=== PATIENT | male | born 1940 | race Hispanic/Latino ===

== ENCOUNTER 2020-12-31 16:33 | Inpatient (IN) | payer MEDICARE ==
[~2020-12-31] VITALS: Ht 167.6 cm; Wt 77.1 kg
[~2020-12-31 16:33] MED LIST: ASPIR 8181 MG PO; ATORVASTATIN CA40 MG PO; MIRTAZAPINE15 MG PO; ZEBETA10 MG PO
[2020-12-31] MEDS ORDERED: LACTULOSE SYRUP 20 GM/30 ML UDC PO ONE (17:30)
[2020-12-31 17:57] LABS: BASOPHILS # (AUTO) 0.1 (0.0-0.1); BASOPHILS % 0.4 % (0.0-1.0); EOSINOPHILS % 0.2 % (0.0-6.0); HEMATOCRIT 40.6 % (38.2-49.6); LYMPHOCYTES # (AUTO) 1.2 (1.0-3.2); LYMPHOCYTES % 8.9 % (18.0-39.1); MEAN CORPUSCULAR HEMOGLOBIN 34.1 pg (28-32); MEAN CORPUSCULAR HGB CONC 34.5 g/dL (31-35); MEAN CORPUSCULAR VOLUME 98.8 fL (81-99); MONOCYTES # (AUTO) 1.9 (0.2-0.8); MONOCYTES % 14.3 % (4.4-11.3); NEUTROPHILS # (AUTO) 9.7 (2.1-6.9); NEUTROPHILS % 74.4 % (38.7-80.0); PLATELET COUNT 298 x10e3/uL (140-360); RED BLOOD COUNT 4.11 x10e6/uL (4.3-5.7)
[2020-12-31 18:14] LABS: ALBUMIN 3.1 g/dL (3.5-5.0); ALBUMIN/GLOBULIN RATIO 0.9 (0.8-2.0); ANION GAP 18.8 mmol/L (8-16); CALCIUM 8.8 mg/dL (8.4-10.2); CREATININE, SERUM 0.86 mg/dL (0.72-1.25); POTASSIUM 3.8 mmol/L (3.5-5.1)
[2020-12-31 18:24] LABS: CREATINE KINASE MB 9.2 ng/mL (0-5.0)
[2020-12-31] MEDS ORDERED: IOPAMIDOL 370 MG/ML 200 ML INFUS..BTL INJ ONE (19:11)
[2020-12-31] MEDS ORDERED: SODIUM CHLORIDE 0.9% 50ML 50 ML ONE (19:12)
[2020-12-31 20:57] LABS: CLARITY,URINE SL CLOUDY (CLEAR); COLOR,URINE YELLOW (YELLOW); KETONES,URINE TRACE (NEGATIVE); LEUKOCYTE ESTERASE ,URINE NEGATIVE (NEGATIVE); NITRITE,URINE NEGATIVE (NEGATIVE); PROTEIN,URINE DIPSTICK TRACE (NEGATIVE)
[2020-12-31 20:58] LABS: URINE UROBILINOGEN 0.2 mg/dL (0.2 - 1)
[2020-12-31 21:09] LABS: RBC,URINE 0-5 /HPF (0-5)
[2020-12-31] MEDS: Pantoprazole IV 40 MG in SODIUM CHLORIDE 0.9% 50ML 50 ML IV SCH (22:00)
[2020-12-31] MEDS ORDERED: ONDANSETRON HCL INJ 2MG/ML 2ML 2 MG/ML VIAL IV PRN (22:45)
[2021-01-01] VITALS (9 sets, daily range): BP systolic 15–129; BP diastolic 67–77
[2021-01-01] MEDS: MORPHINE SULFATE INJ 4 MG/ML INJ 1ML IV PRN ×2 (00:07→03:04)
[2021-01-01] MEDS ORDERED: AMLODIPINE BESYL5 MG PO (02:21)
[2021-01-01] MEDS ORDERED: METOCLOPRAMIDE H5 MG PO (02:24)
[2021-01-01] MEDS ORDERED: LEVOCETIRIZINE D5 MG (02:26)
[2021-01-01] MEDS ORDERED: BISOPROLOL FUMAR5 MG (02:27)
[2021-01-01] MEDS ORDERED: METRONIDAZOLE250 MG PO (02:28)
[2021-01-01] MEDS: Pantoprazole IV 40 MG in SODIUM CHLORIDE 0.9% 50ML 50 ML IV SCH ×5 (03:11→21:53)
[2021-01-01] MEDS ORDERED: ACETAMINOPHEN 325 MG TAB PO PRN (04:30)
[2021-01-01] MEDS ORDERED: DOCUSATE SODIUM 100 MG CAP PO PRN (04:30)
[2021-01-01] MEDS: AMLODIPINE BESYLATE 5 MG TAB PO SCH (08:09)
[2021-01-01] MEDS: BISOPROLOL FUMARATE 10 MG TAB PO SCH (17:02)
[2021-01-01] MEDS: MIRTAZAPINE 15 MG TAB PO SCH (21:19)
[2021-01-01] MEDS: ZOLPIDEM TARTRATE 5 MG TAB PO PRN (21:19)
[2021-01-01] MEDS: ATORVASTATIN 40 MG TAB PO SCH (21:19)
[2021-01-02] MEDS: Pantoprazole IV 40 MG in SODIUM CHLORIDE 0.9% 50ML 50 ML IV SCH ×4 (04:17→21:54)
[2021-01-02 09:00] VITALS: BP 95/55
[2021-01-02] MEDS: BISOPROLOL FUMARATE 10 MG TAB PO SCH (09:00)
[2021-01-02] MEDS: AMLODIPINE BESYLATE 5 MG TAB PO SCH (09:00)
[2021-01-02 10:41] LABS: BASOPHILS # (AUTO) 0.1 (0.0-0.1); BASOPHILS % 0.5 % (0.0-1.0); EOSINOPHILS # (AUTO) 0.1 (0.0-0.4); EOSINOPHILS % 0.9 % (0.0-6.0); HEMOGLOBIN 12.9 g/dL (14.0-18.0); LYMPHOCYTES # (AUTO) 1.6 (1.0-3.2); LYMPHOCYTES % 15.7 % (18.0-39.1); MEAN CORPUSCULAR HEMOGLOBIN 33.7 pg (28-32); MEAN CORPUSCULAR HGB CONC 33.9 g/dL (31-35); MEAN CORPUSCULAR VOLUME 99.2 fL (81-99); MONOCYTES # (AUTO) 1.3 (0.2-0.8); MONOCYTES % 12.9 % (4.4-11.3); NEUTROPHILS # (AUTO) 6.7 (2.1-6.9); NEUTROPHILS % 68.2 % (38.7-80.0); PLATELET COUNT 269 x10e3/uL (140-360); RED BLOOD COUNT 3.83 x10e6/uL (4.3-5.7); RED CELL DISTRIBUTION WIDTH 14.3 % (11.7-14.4)
[2021-01-02] MEDS ORDERED: SODIUM CHLORIDE 0.9% 250ML 250 ML ONE (10:50)
[2021-01-02 11:04] LABS: ANION GAP 14.1 mmol/L (8-16); CALCIUM 8.6 mg/dL (8.4-10.2); CREATININE, SERUM 0.8 mg/dL (0.72-1.25); POTASSIUM 4.1 mmol/L (3.5-5.1)
[2021-01-02 18:26] VITALS: BP 95/55
[2021-01-02 20:00] VITALS: BP_SYST 120; BP_SYST 121; BP_DIAS 66; BP_DIAS 67
[2021-01-02] MEDS: ZOLPIDEM TARTRATE 5 MG TAB PO PRN (21:00)
[2021-01-02] MEDS: SUCRALFATE 1 GM TAB PO SCH (21:14)
[2021-01-02] MEDS: MIRTAZAPINE 15 MG TAB PO SCH (21:14)
[2021-01-02] MEDS: ATORVASTATIN 40 MG TAB PO SCH (21:14)
[2021-01-03] VITALS (8 sets, daily range): BP systolic 105–124; BP diastolic 55–67
[2021-01-03] MEDS: Pantoprazole IV 40 MG in SODIUM CHLORIDE 0.9% 50ML 50 ML IV SCH ×5 (02:49→22:47)
[2021-01-03] MEDS: SUCRALFATE 1 GM TAB PO SCH ×4 (09:41→20:45)
[2021-01-03] MEDS: AMLODIPINE BESYLATE 5 MG TAB PO SCH (09:42)
[2021-01-03] MEDS: BISOPROLOL FUMARATE 10 MG TAB PO SCH (09:43)
[2021-01-03] MEDS: MIRTAZAPINE 15 MG TAB PO SCH (20:45)
[2021-01-03] MEDS: ATORVASTATIN 40 MG TAB PO SCH (20:45)
[2021-01-04] VITALS (8 sets, daily range): BP systolic 93–117; BP diastolic 53–70
[2021-01-04] MEDS: Pantoprazole IV 40 MG in SODIUM CHLORIDE 0.9% 50ML 50 ML IV SCH ×5 (03:47→23:18)
[2021-01-04 06:35] LABS: BASOPHILS # (AUTO) 0.1 (0.0-0.1); BASOPHILS % 0.5 % (0.0-1.0); EOSINOPHILS # (AUTO) 0.2 (0.0-0.4); EOSINOPHILS % 1.4 % (0.0-6.0); HEMATOCRIT 38.1 % (38.2-49.6); HEMOGLOBIN 13.1 g/dL (14.0-18.0); LYMPHOCYTES % 18.5 % (18.0-39.1); MEAN CORPUSCULAR HGB CONC 34.4 g/dL (31-35); MONOCYTES # (AUTO) 1.5 (0.2-0.8); MONOCYTES % 13.4 % (4.4-11.3); NEUTROPHILS % 64.9 % (38.7-80.0); PLATELET COUNT 292 x10e3/uL (140-360); RED BLOOD COUNT 3.85 x10e6/uL (4.3-5.7); RED CELL DISTRIBUTION WIDTH 14.2 % (11.7-14.4)
[2021-01-04 06:52] LABS: ANION GAP 14.8 mmol/L (8-16); CALCIUM 8.8 mg/dL (8.4-10.2); CREATININE, SERUM 0.89 mg/dL (0.72-1.25); POTASSIUM 3.8 mmol/L (3.5-5.1)
[2021-01-04] MEDS: SUCRALFATE 1 GM TAB PO SCH ×4 (09:03→21:20)
[2021-01-04] MEDS: BISOPROLOL FUMARATE 10 MG TAB PO SCH (09:03)
[2021-01-04] MEDS: AMLODIPINE BESYLATE 5 MG TAB PO SCH (09:03)
[2021-01-04] MEDS: MIRTAZAPINE 15 MG TAB PO SCH (21:20)
[2021-01-04] MEDS: ATORVASTATIN 40 MG TAB PO SCH (21:20)
[2021-01-05] VITALS (7 sets, daily range): BP systolic 92–120; BP diastolic 52–68
[2021-01-05] MEDS: Pantoprazole IV 40 MG in SODIUM CHLORIDE 0.9% 50ML 50 ML IV SCH ×5 (04:13→22:02)
[2021-01-05] MEDS: SUCRALFATE 1 GM TAB PO SCH ×4 (08:30→22:01)
[2021-01-05] MEDS: AMLODIPINE BESYLATE 5 MG TAB PO SCH (10:06)
[2021-01-05] MEDS: BISOPROLOL FUMARATE 10 MG TAB PO SCH (10:07)
[2021-01-05] MEDS: ATORVASTATIN 40 MG TAB PO SCH (22:01)
[2021-01-05] MEDS: MIRTAZAPINE 15 MG TAB PO SCH (22:02)
[2021-01-06] VITALS (9 sets, daily range): BP systolic 94–111; BP diastolic 47–66
[2021-01-06] MEDS: Pantoprazole IV 40 MG in SODIUM CHLORIDE 0.9% 50ML 50 ML IV SCH ×2 (03:48→09:06)
[2021-01-06] MEDS: SUCRALFATE 1 GM TAB PO SCH ×3 (05:26→12:09)
[2021-01-06] MEDS ORDERED: BENZOCAINE 20% SPR 60 ML CAN ONE (08:45)
[2021-01-06] MEDS ORDERED: SODIUM CHLORIDE 0.9% 1000ML 1,000 ML ONE (08:45)
[2021-01-06] MEDS: BISOPROLOL FUMARATE 10 MG TAB PO SCH (10:22)
[2021-01-06] MEDS: AMLODIPINE BESYLATE 5 MG TAB PO SCH (10:22)
[2021-01-06] MEDS ORDERED: PANTOPRAZOLE SO40 MG PO (12:02)
[2021-01-06] MEDS ORDERED: CARAFATE1 GM PO (12:02)
== END 2021-01-06 15:07 | disposition home or self-care (01) | DRG 384 ==
LOC: ER 17:36 → ERHOLD 22:03 → MED/SURG3 01-01 01:49
PROVIDERS: ADMIT Internal Medicine; ATTEND Internal Medicine
PROC: 0DB78ZX Excision of Stomach, Pylorus, Via Natural or Artificial Opening Endoscopic, Diagnostic (ICD-10-PCS; 2021-01-02)
PROC: 0DB68ZX Excision of Stomach, Via Natural or Artificial Opening Endoscopic, Diagnostic (ICD-10-PCS; 2021-01-02)
PROC: 0DB98ZX Excision of Duodenum, Via Natural or Artificial Opening Endoscopic, Diagnostic (ICD-10-PCS; principal; 2021-01-02 17:57)
DX: K26.9 Duodenal ulcer, unspecified as acute or chronic, without hemorrhage or perforation (principal); I51.3 Intracardiac thrombosis, not elsewhere classified; K44.9 Diaphragmatic hernia without obstruction or gangrene; I10 Essential (primary) hypertension; E78.5 Hyperlipidemia, unspecified; Z20.822 Contact with and (suspected) exposure to COVID-19
CPT/HCPCS: 36415; 43239; 71045; 74177; 80048; 80053; 81001; 82550; 82553; 83690; 84484; 85025; 88305; 88312; 93005; 93306; 93307; 93312; 93325; 96361; 99285; J2270; J2405; J7030; J7050; Q9967; U0002